=== PATIENT | female | born 2000 | race Caucasian/White ===

== ENCOUNTER → 2022-05-17 | Outpatient (CLI) | payer OTHER ==
[2022-05-17 14:06] LABS: HEMATOCRIT 41.4 % (36.0-47.0); HEMOGLOBIN 12.9 g/dl (12.0-15.5); MEAN CORPUSCULAR HEMOGLOBIN 26.2 pg (27.0-33.0); MEAN CORPUSCULAR HGB CONC 31.2 g/dl (32.0-36.5); PLATELET COUNT, AUTOMATED 296 10^3/uL (150-450); RED BLOOD COUNT 4.93 10^6/uL (4.00-5.40); WHITE BLOOD COUNT 10.2 10^3/uL (4.0-10.0)
[2022-05-17 15:11] LABS: HIV 1&2 SCREEN CENTAUR NEGATIVE (NEGATIVE)
[2022-05-17 15:19] LABS: HEPATITIS C VIRUS ABY INDEX 0.1 INDEX (<0.8)
[2022-05-17 16:32] LABS: GC DNA AMPLIFICATION NEGATIVE (NEGATIVE)
== END ==
LOC: M PLALAB 11:07
PROVIDERS: ATTEND Advanced Practice Midwife
DX: Z34.01 Encounter for supervision of normal first pregnancy, first trimester (principal)

== ENCOUNTER → 2022-07-07 | Outpatient (CLI) | payer OTHER | LOC: M PLALAB 08:43 | PROVIDERS: ATTEND Specialist | DX: Z34.92 Encounter for supervision of normal pregnancy, unspecified, second trimester (principal) ==

== ENCOUNTER → 2022-09-15 | Outpatient (CLI) | payer OTHER | LOC: M WHC 12:31 | PROVIDERS: ATTEND Specialist | DX: Z34.02 Encounter for supervision of normal first pregnancy, second trimester (principal) ==

== ENCOUNTER → 2022-10-12 | Outpatient (CLI) | payer OTHER | LOC: M WHC 14:07 | PROVIDERS: ATTEND Advanced Practice Midwife | DX: Z34.03 Encounter for supervision of normal first pregnancy, third trimester (principal); Z3A.29 29 weeks gestation of pregnancy ==

== ENCOUNTER → 2022-11-06 | Outpatient (CLI) | payer OTHER ==
[2022-11-06 20:34] LABS: HEMATOCRIT 30.3 % (36.0-47.0); MEAN CORPUSCULAR HGB CONC 29.7 g/dl (32.0-36.5); MEAN CORPUSCULAR VOLUME 74.1 fl (80.0-96.0); PLATELET COUNT, AUTOMATED 301 10^3/uL (150-450); RED BLOOD COUNT 4.09 10^6/uL (4.00-5.40); WHITE BLOOD COUNT 9.7 10^3/uL (4.0-10.0)
[2022-11-06 23:06] LABS: GC DNA AMPLIFICATION NEGATIVE (NEGATIVE)
== END ==
LOC: M PLALAB 14:31
PROVIDERS: ATTEND Obstetrics & Gynecology
DX: Z36.9 Encounter for antenatal screening, unspecified (principal)

== ENCOUNTER → 2022-11-10 | Outpatient (CLI) | payer OTHER | LOC: M LAB 07:26 | PROVIDERS: ATTEND Obstetrics & Gynecology | DX: O99.810 Abnormal glucose complicating pregnancy (principal) ==

== ENCOUNTER → 2022-11-21 | Outpatient (REF) | payer OTHER | LOC: M SFHCWAGY 17:03 | PROVIDERS: ATTEND Advanced Practice Midwife | DX: Z36.85 Encounter for antenatal screening for Streptococcus B (principal) | CPT/HCPCS: 87081; G0463 ==